=== PATIENT | female | born 1955 | race Caucasian/White ===

== ENCOUNTER 2022-05-10 06:06 | Emergency (ER) | payer SELFPAY ==
[~2022-05-10] VITALS: Ht 157.5 cm; Wt 60.0 kg
[2022-05-10 06:13] VITALS: BP 154/90
== END 2022-05-10 10:35 | disposition left against medical advice (07) ==
LOC: ER 06:06
DX: Z53.21 Procedure and treatment not carried out due to patient leaving prior to being seen by health care provider (principal)
CPT/HCPCS: 99281